=== PATIENT | female | born 1955 | race Caucasian/White ===

== ENCOUNTER 2017-09-28 12:47 | Emergency (ER) | payer MEDICAID ==
[~2017-09-28] VITALS: Ht 160 cm; Wt 61.3 kg
[2017-09-28 12:57] VITALS: BP 136/98
[2017-09-28] MEDS ORDERED: IBUP-1984 PO (13:51)
== END 2017-09-28 14:00 | disposition home or self-care (01) ==
LOC: ER 12:48
DX: R07.81 Pleurodynia (principal)
CPT/HCPCS: 73110; 99284